=== PATIENT | female | born 1960 | race Caucasian/White ===

== ENCOUNTER 2018-01-13 10:14 | Emergency (ER) | payer OTHER ==
[~2018-01-13] VITALS: Wt 56.7 kg
[~2018-01-13 10:14] MED LIST: LEVAQUIN750 MG PO; PRILOSEC20 MG PO; VICODIN ES 7501 TAB PO
[2018-01-13] MEDS ORDERED: NORCO 5-325 TA1 EACH PO (11:28)
[2018-01-13] MEDS ORDERED: NAPROSYN500 MG PO (11:36)
== END 2018-01-13 12:05 | disposition home or self-care (01) ==
LOC: ED 10:14
DX: S92.422A Displaced fracture of distal phalanx of left great toe, initial encounter for closed fracture (principal); Z90.710 Acquired absence of both cervix and uterus; W01.198A Fall on same level from slipping, tripping and stumbling with subsequent striking against other object, initial encounter; Y93.89 Activity, other specified; Y92.89 Other specified places as the place of occurrence of the external cause; Y99.8 Other external cause status

== ENCOUNTER 2018-06-22 10:21 | Emergency (ER) | payer OTHER ==
[~2018-06-22] VITALS: Wt 62.1 kg
[~2018-06-22 10:21] MED LIST changes: +NAPROSYN500 MG PO; +NORCO 5-325 TA1 EACH PO
== END 2018-06-22 11:24 | disposition home or self-care (01) ==
LOC: ED 10:21
DX: S10.96XA Insect bite of unspecified part of neck, initial encounter (principal); Z90.710 Acquired absence of both cervix and uterus; W57.XXXA Bitten or stung by nonvenomous insect and other nonvenomous arthropods, initial encounter; Y93.89 Activity, other specified; Y92.89 Other specified places as the place of occurrence of the external cause; Y99.8 Other external cause status

== ENCOUNTER → 2020-07-12 | Outpatient (CLI) | payer OTHER | END | disposition home or self-care (01) | LOC: COVID19 11:47 | PROVIDERS: ATTEND Internal Medicine | DX: Z20.828 Contact with and (suspected) exposure to other viral communicable diseases (principal) ==

== ENCOUNTER 2023-05-05 07:17 | Emergency (ER) | payer BC | END 2023-05-05 09:34 | disposition home or self-care (01) | LOC: ED 07:17 | DX: S63.92XA Sprain of unspecified part of left wrist and hand, initial encounter (principal); Z90.710 Acquired absence of both cervix and uterus; Z98.890 Other specified postprocedural states; Z90.49 Acquired absence of other specified parts of digestive tract; F17.200 Nicotine dependence, unspecified, uncomplicated; W01.190A Fall on same level from slipping, tripping and stumbling with subsequent striking against furniture, initial encounter; Y93.89 Activity, other specified; Y92.89 Other specified places as the place of occurrence of the external cause; Y99.8 Other external cause status ==

== ENCOUNTER → 2023-06-29 | Outpatient (CLI) | payer BC | END | disposition home or self-care (01) | LOC: RAD 09:22 | PROVIDERS: ATTEND Physician Assistant | DX: M85.88 Other specified disorders of bone density and structure, other site (principal); Z78.0 Asymptomatic menopausal state ==

== ENCOUNTER 2023-10-14 07:59 | Emergency (ER) | payer BC ==
[~2023-10-14] VITALS: Ht 160 cm; Wt 56.7 kg
[2023-10-14] MEDS ORDERED: Acetaminophen/Oxycodone 5 MG/325 MG TABLET PO ONE (08:10)
[2023-10-14] MEDS ORDERED: PERCOCET 5-3251 EACH PO (08:54)
== END 2023-10-14 11:43 | disposition home or self-care (01) ==
LOC: ED 07:59
DX: S92.002A Unspecified fracture of left calcaneus, initial encounter for closed fracture (principal); Z90.710 Acquired absence of both cervix and uterus; Z90.49 Acquired absence of other specified parts of digestive tract; W10.8XXA Fall (on) (from) other stairs and steps, initial encounter; Y93.89 Activity, other specified; Y92.89 Other specified places as the place of occurrence of the external cause; Y99.8 Other external cause status

== ENCOUNTER → 2023-10-24 | Outpatient (CLI) | payer BC ==
[~2023-10-24] MED LIST changes: +PERCOCET 5-3251 EACH PO
== END | disposition home or self-care (01) ==
LOC: ORTHO 02:40
PROVIDERS: ATTEND Orthopaedic Surgery
DX: S92.002D Unspecified fracture of left calcaneus, subsequent encounter for fracture with routine healing (principal); I82.402 Acute embolism and thrombosis of unspecified deep veins of left lower extremity; X58.XXXD Exposure to other specified factors, subsequent encounter

== ENCOUNTER → 2024-01-04 | Outpatient (CLI) | payer BC | LOC: ORTHO 00:49 | PROVIDERS: ATTEND Orthopaedic Surgery | DX: S82.402D Unspecified fracture of shaft of left fibula, subsequent encounter for closed fracture with routine healing (principal); S92.002D Unspecified fracture of left calcaneus, subsequent encounter for fracture with routine healing; X58.XXXD Exposure to other specified factors, subsequent encounter ==

== ENCOUNTER 2024-05-20 07:18 | Emergency (ER) | payer BC ==
[~2024-05-20] VITALS: Ht 160 cm; Wt 56.7 kg
[2024-05-20] MEDS ORDERED: Acetaminophen/Oxycodone 5 MG/325 MG TABLET PO ONE (07:35)
[2024-05-20] MEDS ORDERED: MELOXICAM15 MG PO (09:43)
== END 2024-05-20 09:45 | disposition home or self-care (01) ==
LOC: ED 07:18
DX: S63.501A Unspecified sprain of right wrist, initial encounter (principal); M79.644 Pain in right finger(s); F17.200 Nicotine dependence, unspecified, uncomplicated; Z90.710 Acquired absence of both cervix and uterus; Z90.49 Acquired absence of other specified parts of digestive tract; W01.0XXA Fall on same level from slipping, tripping and stumbling without subsequent striking against object, initial encounter; Y93.89 Activity, other specified; Y92.89 Other specified places as the place of occurrence of the external cause; Y99.8 Other external cause status